=== PATIENT | female | born 1960 | race Caucasian/White ===

== ENCOUNTER 2025-01-25 23:23 | Emergency (ER) | payer MEDICARE, SELFPAY ==
--- NOTE | 2025-01-25 23:39 | ED.GENMED ---
History of Present Illness
<Kendra Melgar, MAT INSPECTOR - Last Filed: 01/28/25 02:53>
General
Chief Complaint: Urinary Symptoms
Source: patient
Exam Limitations: none
Time Seen by Provider: 01/25/25 23:31
Nursing documentation reviewed up to this point in time: agreed with
History of Present Illness
History of Present Illness:
65-year-old female with no significant past medicalhere for acute urinary retention, states she has not urinated since earlier this morning. States this has never happened before. States states denies fever/chills. Denies flank pain
Past History
<Kendra Melgar, MAT INSPECTOR - Last Filed: 01/28/25 02:53>
Past History
ED Past Medical History: None
ED Past Surgical History: Gynecological
Social History
Tobacco: Non-smoker
Alcohol: None
Personal:
Living: with family
Employment: Not employed
Review of Systems
<Kendra Melgar, MAT INSPECTOR - Last Filed: 01/28/25 02:53>
Review of Systems
Allergies reviewed?: Yes
All Other Systems: ROS reviewed and negative except as documented in HPI and ROS
Constitutional: Denies fever
: Reports difficulty voiding; Denies flank pain
Phy Exam
<Kendra Melgar, MAT INSPECTOR - Last Filed: 01/28/25 02:53>
Physical Exam
Physical Exam:
GENERAL: No acute distress. A&Ox3.
CONSTITUTIONAL: Afebrile.
EYES: clear, conjunctivae normal
ENMT: moist mucus membranes
RESPIRATORY: Regular respirations, nonlabored, lungs clear.
CARDIOVASCULAR: Regular rate and rhythm, tachycardic, HR 140, no murmurs, no rubs.
GI: Soft, suprapubic distention and tenderness, normal BS
MUSCULOSKELETAL: Moves with ease. Well perfused.
SKIN: Warm, dry, pink
PSYCH: Normal mood and affect. Well kept, interactive and appropriate
NEUROLOGIC: Awake, alert and oriented. No focal neurological deficits
Sepsis
<Kendra Melgar, MAT INSPECTOR - Last Filed: 01/28/25 02:53>
Sepsis Screen
Sepsis Screen: Sepsis
Date: 01/28/25
Time: 02:53
<Penelope Crane PA-C - Last Filed: 01/26/25 06:29>
Sepsis Screening
Sepsis Assessment: Sepsis
Sepsis Screen
Sepsis Screen: Sepsis
Date: 01/26/25
Time: 06:29
Course
<Kendra Melgar, MAT INSPECTOR - Last Filed: 01/28/25 02:53>
Orders/Labs/Results
Orders:
Orders
01/25/25 23:41
Urinalysis Reflex To Culture Urgent
Date Specimen was Collected: 01/25/25
Time Specimen was Collected: 23:53
01/25/25 23:54
Complete Blood Count/With Diff Urgent
Comprehensive Metabolic Panel Urgent
01/26/25 00:03
Urine Microscopic Reflex Cult Urgent
01/26/25 01:09
Lisinopril [Zestril] 10 mg PO NOW STA
Metoprolol [Lopressor] 25 mg PO NOW STA
01/26/25 02:15
Electrocardiogram (*1) Urgent
Reason for Study: Hypertension, Benign
Comment: HYPERTENSION
01/26/25 02:27
Metoprolol [Lopressor] 12.5 mg PO NOW STA
01/26/25 02:47
Metoprolol [Lopressor] 25 mg PO NOW STA
Abnormal Lab Results
01/25/25 01/26/25
23:54 00:03
WBC 12.1 H 10^3/uL
(4.8-10.8)
MPV 12.2 H fL
(7.4-10.4)
Abs Immat Gran (auto) 0.1 H 10^3/uL
(0-0.05)
Absolute Neuts (auto) 10.2 H 10^3/uL
(1.4-6.5)
Absolute Lymphs (auto) 1.1 L 10^3/uL
(1.2-3.4)
Immature Gran % 0.9 H %
(0-0.5)
Neutrophils % 84.6 H %
(42.2-75.2)
Lymphocytes % 9.2 L %
(20.5-51.1)
Carbon Dioxide 21 L mmol/L
(22-30)
Creatinine 0.5 L mg/dL
(0.6-1.0)
Glucose 180 H mg/dl
(70-99)
Total Protein 8.4 H g/dl
(6.3-8.2)
Albumin 5.1 H g/dl
(3.5-5.0)
Urine Ketones 2+ A
(Negative)
Ur Occult Blood Reflex 3+ A
(Negative)
Urine RBC 30-40 A /HPF
(0-2)
Urine Albumin (Reflex) 3+ A
(Neg - Trace)
01/25/25 23:54
01/25/25 23:54
Vital Signs
Initial and Last Documented VS:
Initial Vital Signs
Temp Pulse Resp Pulse Ox
97.8 F 150 28 98
01/25/25 23:25 01/25/25 23:25 01/25/25 23:25 01/25/25 23:25
Last Documented Vital Signs
Temp Pulse Resp BP Pulse Ox
97.8 F 69 22 190/91 98
01/25/25 23:25 01/26/25 03:30 01/26/25 03:30 01/26/25 03:30 01/25/25 23:41
<Penelope Crane PA-C - Last Filed: 01/26/25 06:29>
Orders/Labs/Results
Orders:
Orders
01/25/25 23:41
Urinalysis Reflex To Culture Urgent
Date Specimen was Collected: 01/25/25
Time Specimen was Collected: 23:53
01/25/25 23:54
Complete Blood Count/With Diff Urgent
Comprehensive Metabolic Panel Urgent
01/26/25 00:03
Urine Microscopic Reflex Cult Urgent
01/26/25 01:09
Lisinopril [Zestril] 10 mg PO NOW STA
Metoprolol [Lopressor] 25 mg PO NOW STA
01/26/25 02:15
Electrocardiogram (*1) Urgent
Reason for Study: Hypertension, Benign
Comment: HYPERTENSION
01/26/25 02:27
Metoprolol [Lopressor] 12.5 mg PO NOW STA
01/26/25 02:47
Metoprolol [Lopressor] 25 mg PO NOW STA
Abnormal Lab Results
01/25/25 01/26/25
23:54 00:03
WBC 12.1 H 10^3/uL
(4.8-10.8)
MPV 12.2 H fL
(7.4-10.4)
Abs Immat Gran (auto) 0.1 H 10^3/uL
(0-0.05)
Absolute Neuts (auto) 10.2 H 10^3/uL
(1.4-6.5)
Absolute Lymphs (auto) 1.1 L 10^3/uL
(1.2-3.4)
Immature Gran % 0.9 H %
(0-0.5)
Neutrophils % 84.6 H %
(42.2-75.2)
Lymphocytes % 9.2 L %
(20.5-51.1)
Carbon Dioxide 21 L mmol/L
(22-30)
Creatinine 0.5 L mg/dL
(0.6-1.0)
Glucose 180 H mg/dl
(70-99)
Total Protein 8.4 H g/dl
(6.3-8.2)
Albumin 5.1 H g/dl
(3.5-5.0)
Urine Ketones 2+ A
(Negative)
Ur Occult Blood Reflex 3+ A
(Negative)
Urine RBC 30-40 A /HPF
(0-2)
Urine Albumin (Reflex) 3+ A
(Neg - Trace)
01/25/25 23:54
01/25/25 23:54
Vital Signs
Initial and Last Documented VS:
Initial Vital Signs
Temp Pulse Resp Pulse Ox
97.8 F 150 28 98
01/25/25 23:25 01/25/25 23:25 01/25/25 23:25 01/25/25 23:25
Last Documented Vital Signs
Temp Pulse Resp BP Pulse Ox
97.8 F 69 22 190/91 98
01/25/25 23:25 01/26/25 03:30 01/26/25 03:30 01/26/25 03:30 01/25/25 23:41
<Kendra Melgar, MAT INSPECTOR - Last Filed: 01/28/25 02:53>
MDM/Problems Addressed
Differential Diagnosis Includes:
UTI,
MDM/Problems Addressed:
65-year-old female with no significant past medical hx here for acute urinary retention, states she has not urinated since earlier this morning. States this has never happened before. States states denies fever/chills. Denies flank pain
Afebrile
Bladder scan: 800 ml
Carson catheter inserted, drained 1600 ml
12:30 a.m.:
CBC WBC 12.1
CMP with no clinically significant abnormality
U/A: Neg nitrites, neg leukocytes, 3+ occult blood
BP remains high: 206/119, 197/98 HR down from 150 to 104
Pt now tells me she used to take Lisinopril and Toprol but stopped it quite a while ago.
I will restart both and she will see her PCP next week.
She will f/u with Dr. Fairchild for the Carson catheter/urine retention.
1:20 a.m.
Case discussed with Penelope Crane who will assume care from this point.
Urine microscopic pending
If + for infection will prescribe antibiotics
<Kendra Melgar NP - Last Filed: 01/28/25 02:53>
*Pulse Oximetry
SaO2: 98
<Penelope Crane PA-C - Last Filed: 01/26/25 06:29>
*Pulse Oximetry
Patient hypoxic: no
*Critical Care Note
Total Time (30-74mins, 75-104mins- exclusive of procedures): Not Applicable
<Penelope Crane PA-C - Last Filed: 01/26/25 06:29>
Update Note
Update Note:
Update
I received patient in sign out
Patient seen for acute urinary retention she had catheter placed
She is still acutely hypertensive despite being given a dose of her home blood pressure meds
Will give an additional dose of metoprolol
Update, blood pressure continues to be elevated. Discussed with patient that these doses of oral medication will take some time to have effect. Reviewed case with ED attending. No indication for IV dose at this time. Patient has no signs of
endorgan damage. Patient will follow-up with primary. Patient stable for discharge. Discussed follow-up with urology.
ED Attending Note
<Kendra Melgar NP - Last Filed: 01/28/25 02:53>
-
Portions of this chart may have been created with voice recognition software.� Occasional wrong word or��sound alike� substitutions may have occurred due to the inherent limitations of voice recognition software.
Discharge Plan
Departure
Patient Disposition: Home (Routine Discharge)
Date of Disposition: 01/26/25
Time of Disposition: 03:40
Patient with high blood pressure during this ER visit?: Yes
Condition: Fair
Discharge Problem:
Acute retention of urine, Hypertension
Instructions: Urinary retention (DC), How to care for a urinary catheter, BLOOD PRESSURE
Prescriptions:
New
lisinopril 10 mg tablet
10 mg PO DAILY Qty: 30 0RF
metoprolol succinate [Toprol XL] 25 mg tablet extended release 24 hr
12.5 mg PO DAILY Qty: 30 0RF
Referrals:
Briana Treviño MD [Family Provider, Family Practice] - Follow up in 5-7 days
Percy Fairchild Jr., MD [Active, Urology] - Call in 1-3 days for appt
Activity Restrictions/Additional Instructions:
As we discussed, call the Urology office in the morning and inform of your urine retention and Carson catheter and make follow up appointment.
For your blood pressure, I sent prescriptions to your pharmacy for Lisinopril and Toprol, start them tomorrow as you had a dose here today.
Call your primary doctor's office and make appointment for next week and tell them you were restarted on your medication and need a Blood pressure check
Interventions
Interventions:
*Risk Screen - Suicide Last Done: 01/25/25 23:25
*General Assessment Last Done: 01/26/25 04:07
*Neglect/Abuse Screening Last Done: 01/25/25 23:25
*ED- Fall Risk Assessment Last Done: 01/26/25 04:07
*ED COVID-19 Vaccine History Last Done: 01/26/25 04:07
*Nursing Disposition Last Done: 01/26/25 04:07
ED-Female Genitourinary Assessment Last Done: 01/26/25 00:07
Discharge Date and Time
Discharge Date/Time: 01/26/25 04:08
Print Language: [email or web address]
[2025-01-26] VITALS (11 sets, daily range): BP systolic 190–211; BP diastolic 91–123
[2025-01-26 00:13] LABS: Urine Character Clear (Clear)
[2025-01-26 00:34] LABS: ALT (SGPT) 13 U/L (0-35); AST (SGOT) 18 U/L (14-36); Albumin 5.1 g/dl (3.5-5.0); Alkaline Phosphatase 63 U/L (38-126); Blood Urea Nitrogen 11 mg/dl (7-17); Calcium 9.9 mg/dl (8.4-10.2); Carbon Dioxide 21 mmol/L (22-30); Chloride 103 mmol/L (98-107); Glucose 180 mg/dl (70-99); Hematocrit 43.5 % (37.0-47.0); Hemoglobin 14.4 g/dL (12.0-16.0); Mean Corp Hgb Conc. 33.1 g/dL (33.0-37.0); Mean Corpuscular Volume 83.3 fL (81.0-99.0); Nucleated Red Blood Cells % 0 %; Platelet Count 276 10^3/uL (130-400); Potassium 3.6 mmol/L (3.5-5.1); Red Cell Dist. Width 13.6 % (11.5-14.5); Sodium 138 mmol/L (135-145); Total Protein 8.4 g/dl (6.3-8.2); eGFR > 60.00
[2025-01-26] MEDS: ZESTRIL 10 MG PO (01:39)
[2025-01-26] MEDS: LOPRESSOR 25 MG PO ×2 (01:40→02:59)
[2025-01-26 01:57] LABS: Urine Red Blood Cell 30-40 /HPF (0-2)
[2025-01-26 01:58] LABS: Urine White Cell 0-2 /HPF (0-5)
== END 2025-01-26 04:08 | disposition home or self-care (01) ==
LOC: EMR 23:23
PROVIDERS: Registered Nurse; EMERGENCY PHYSICIAN Student in an Organized Health Care Education/Training Program; FAMILY PHYSICIAN Family Medicine
DX: R33.9 Retention of urine, unspecified (principal); I10 Essential (primary) hypertension
CPT/HCPCS: 99284; 51702; 80053; 81003; 81015; 85025; 93005

== ENCOUNTER → 2025-02-03 16:44 | Outpatient (REF) | payer MEDICARE, SELFPAY | LOC: RAD 16:44 | PROVIDERS: ATTENDING PHYSICIAN Specialist; FAMILY PHYSICIAN Family Medicine | DX: R33.9 Retention of urine, unspecified (principal) | CPT/HCPCS: 74177; Q9967 ==

== ENCOUNTER → 2025-04-17 06:23 | Outpatient (REF) | payer MEDICARE, SELFPAY ==
[2025-04-17 07:38] LABS: Hematocrit 40.4 % (37.0-47.0); Hemoglobin 13.2 g/dL (12.0-16.0); Mean Corp Hgb Conc. 32.7 g/dL (33.0-37.0); Mean Corpuscular Volume 86.9 fL (81.0-99.0); Nucleated Red Blood Cells % 0 %; Platelet Count 274 10^3/uL (130-400); Red Cell Dist. Width 14.3 % (11.5-14.5)
[2025-04-17 08:14] LABS: ALT (SGPT) 12 U/L (0-35); AST (SGOT) 18 U/L (14-36); Albumin 4.5 g/dl (3.5-5.0); Alkaline Phosphatase 53 U/L (38-126); Blood Urea Nitrogen 17 mg/dl (7-17); Calcium 9.3 mg/dl (8.4-10.2); Carbon Dioxide 27 mmol/L (22-30); Chloride 105 mmol/L (98-107); Glucose 151 mg/dl (70-99); HDL Cholesterol 50 mg/dl; LDL Cholesterol, Calculated 189 mg/dl; Potassium 4.8 mmol/L (3.5-5.1); Sodium 140 mmol/L (135-145); Total Protein 7.4 g/dl (6.3-8.2); Very Low Density Lipoprotein 21 mg/dl (0-30); eGFR > 60.00
[2025-04-19 09:03] LABS: Glycohemoglobin (HgbA1c) 5.9 % (4.0-5.9)
== END ==
LOC: RAD 06:23
PROVIDERS: ATTENDING PHYSICIAN Family Medicine
DX: I10 Essential (primary) hypertension (principal); I70.0 Atherosclerosis of aorta; Z87.898 Personal history of other specified conditions; R73.09 Other abnormal glucose
CPT/HCPCS: 36415; 76770; 80053; 80061; 83036; 85025